=== PATIENT | female | born 1965 | race Caucasian/White ===

== ENCOUNTER → 2016-12-15 | Outpatient (CLI) | payer BC ==
[~2016-12-15] MED LIST: REGADENOSON 0.4 MG/5 ML DISP.SYRIN. IV ONE
--- NOTE | 2016-12-15 17:31 | PCVCIMAG ---
APPROVED REPORT Exam: Nuclear Stress Test Indication: Dyspnea, Chest pain Patient Location: Out-Patient Stress Nurse: Mora Blackman RN, Alice Munoz RN VT Tech:Amelia BrizuelahbunBRITTNYMT Ht: 5 ft 4 in Wt: 187 lbs BSA: 1.90 m2 HR: 74 bpm BP: 180/91 mmHg BMI: 32.0 Rhythm: NSR Medical History Medical History: Smoking, Dyspnea, Chest pain Medications: Bystolic Allergies: ASA, Sulfa, Tetracycline Pretest Chest Pain Characteristics: No chest pain Exercise History: Physically active Meds Held (24 hrs): Bystolic NM EXAM: Myocardial Perfusion REST/STRESS Imaging Protocol: Rest Tc-99m/Stress Tc-99m 1 day Resting Data Rest SPECT myocardial perfusion imaging was performed in supine position 45 minutes following the intravenous injection of 15.4 mCi of Tc-99m Sestamibi. Time of rest injection: 919 Date: 12/15/2016 Administration Route: IV Administration Site: Left Hand Pharmacologic Stress Pharmacologic stress test was performed by injecting Regadenoson 0.4 mg IV push followed by the intravenous injection of 45.7 mCi of Tc-99m Sestamibi. Time of stress injection: 1044 Date: 12/15/2016 Administration Route: IV Administration Site: Left Hand Study Quality Study: Good Study Data Post stress, the left ventricular ejection was 74%.. SSS: 0 SRS: 0 SDS: 0 TID = 1.04. Perfusion No evidence of stress induced ischemia or prior myocardial infarction. Wall Motion Normal left ventricular size and function with no regional wall motion abnormalities. Nuclear Conclusion No evidence of stress induced ischemia or prior myocardial infarction. Normal left ventricular size and function with no regional wall motion abnormalities. Post stress, the left ventricular ejection was 74%.. No prior study available for comparison. Interpreted by: Kishan Garcia MD Electronically Approved: 12/15/2016 14:00:56 Stress Test Details Stress Test: Pharmacologic stress was paired with low level exercise. Reason for pharmacologic stress test: physical limitation. HR Resting HR: 74 bpmMax Heart Rate (APMHR): 167 bpm Max HR Achieved: 133 bpmTarget HR (85% APMHR): 141 bpm % of APMHR: 79 Recovery HR: 96 bpm BP Resting BP: 180/91 mmHg Max BP: 154/78 mmHg ECG Resting ECG: Sinus Rhythm Stress ECG: Sinus Tachycardia ST Change: None Maximum ST Deviation: 0 mm Arrhythmia: None Recovery ECG: Sinus Rhythm Recovery ST Change: None Recovery ST Deviation: 0 mm Clinical Reason for Termination: Completed protocol Stress Symptoms: Abdominal discomfort, Leg Fatigue Exercise duration: 4 min 0 sec Exercise capacity: 1.6 METs Symptoms resolved during recovery with caffeine. Stress ECG Conclusion ECG: Non-ischemic Clinical: Non-ischemic <Conclusion> ECG: Non-ischemic Clinical: Non-ischemic
--- NOTE | 2016-12-21 14:25 | PCVCIMAG ---
APPROVED REPORT Study performed: 12/15/2016 08:07:53 EXAM: Comprehensive 2D, Doppler, and color-flow Echocardiogram Patient Location: Echo lab Status: routine BSA: 1.90 HR: 61 bpmBP: 134/86 mmHg Rhythm: NSR Other Information Study Quality: Adequate Indications Dyspnea Edema, tobacco 2D Dimensions LVEF(%): 42.64 (>50%) IVSd: 11.22 (7-11mm) LVDd: 40.45 mm PWd: 9.91 (7-11mm) LVDs: 32.09 (25-40mm) Left Atrium: 36.98 (27-40mm) Aortic Root: 31.12 mm LV Single Plane 4CH: 63.43 % LV Single Plane 2CH: 60.19 %[place]'s LVEF: 61.81 % Biplane EF: 61.0 % Volumes Left Atrial Volume (Systole) Single Plane 4CH: 48.88 mLSingle Plane 2CH: 57.47 mL LA ESV Index: 30.00 mL/m2 Aortic Valve AoV Peak Cruz.: 1.66 m/s AO Peak Gr.: 11.02 mmHgLVOT Max P.50 mmHg LVOT Max V: 0.93 m/s Mitral Valve E/A Ratio: 1.8 MV Decel. Time: 187.00 ms MV E Max Cruz.: 0.89 m/s MV A Cruz.: 0.49 m/s IVRT: 103.81 ms Pulmonary Valve PV Peak Cruz.: 0.85 m/sPV Peak Gr.: 2.92 mmHg Pulmonary Vein P Vein S: 0.39 m/sP Vein A: 0.31 m/s P Vein D: 0.46 m/sP Vein A Dur.: 145.3 msec P Vein S/D Ratio: 0.85 Tricuspid Valve TR Peak Cruz.: 2.59 m/s TR Peak Gr.: 26.86 mmHg Left Ventricle The left ventricle is normal size. There is normal LV segmental wall motion. There is normal left ventricular wall thickness. Left ventricular systolic function is normal. The left ventricular ejection fraction is within the normal range. LVEF is 60%. Grade I - abnormal relaxation pattern. Right Ventricle The right ventricle is normal size. The right ventricular systolic function is normal. Atria The left atrium size is normal. The right atrium size is normal. Aortic Valve The aortic valve is normal in structure. Trace aortic regurgitation is present. There is no aortic valvular stenosis. Mitral Valve The mitral valve is normal in structure. There is no mitral valve regurgitation noted. No evidence of mitral valve stenosis. Tricuspid Valve The tricuspid valve is normal in structure. Mild tricuspid regurgitation with PAP of 34 mmHg. Pulmonic Valve The pulmonary valve is normal in structure. There is trace pulmonic valvular regurgitation. Great Vessels The aortic root is normal in size. IVC is normal in size and collapses with >50% inspiration Pericardium There is no pericardial effusion. <Conclusion> The left ventricle is normal size. LVEF is 60%. The left atrium size is normal. The aortic valve is normal in structure. Trace aortic regurgitation is present. The mitral valve is normal in structure. The tricuspid valve is normal in structure. Mild tricuspid regurgitation with PAP of 34 mmHg. The pulmonary valve is normal in structure. There is trace pulmonic valvular regurgitation.
== END | disposition home or self-care (01) ==
LOC: PCVCIMAG 08:24
PROVIDERS: ATTEND Internal Medicine
DX: I08.2 Rheumatic disorders of both aortic and tricuspid valves (principal); R00.0 Tachycardia, unspecified; Z72.0 Tobacco use; Z79.899 Other long term (current) drug therapy
CPT/HCPCS: 78452; 93017; 93306; A9500; J2785